=== PATIENT | female | born 2000 | race Hispanic/Latino ===

== ENCOUNTER 2022-02-21 20:59 | Emergency (ER) | payer BC ==
--- OUTSIDE RECORDS SUMMARY | 2022-02-21 21:02 | XMS REPORT | Continuity of Care Document ---
:2000 Author Organization [facility] t Address [address] [place] [address] Dr. Coppola [address] [place] [id number] Care Team Providers Name Role Phone Unavailable Unavailable Unavailable Problems This patient has no known problems. Allergies, Adverse Reactions, Alerts This patient has no known allergies or adverse reactions. Medications This patient has no known medications. Procedures This patient has no known procedures. Results This patient has no known results.
[2022-02-21] MEDS ORDERED: DIPHENHYDRAMINE 25 MG TAB/CAP ONE (22:18)
[2022-02-21] MEDS ORDERED: predniSONE 20 MG TAB ONE (22:18)
[2022-02-21] MEDS ORDERED: FAMOTIDINE 20 MG TAB ONE (22:18)
--- NOTE | 2022-02-21 22:43 | ER ---
Nurse's Notes [facility] Name: Hope Arnold Age: 21 yrs Sex: Female : 2000 Arrival Date: 02/21/2022 Time: 21:02 Bed 9 Private MD: Diagnosis: Urticaria, unspecified Presentation: 02/21 21:18 Chief complaint: Patient states: Pt reports she took AZO cranberry for urinary health kb3 last night and awoke with a generalized pruritic rash. Coronavirus screen: Vaccine status: Client denies travel out of the [place] in the last 14 days. Ebola Screen: Patient negative for fever greater than or equal to 101.5 degrees Fahrenheit, and additional compatible Ebola Virus Disease symptoms Patient denies exposure to infectious person. Patient denies travel to an Ebola-affected area in the 21 days before illness onset. Onset: The symptoms/episode began/occurred gradually. Anaphylaxis evaluation, no signs or symptoms of anaphylaxis were noted. Initial Sepsis Screen: Does the patient meet any 2 criteria? No. Patient's initial sepsis screen is negative. Does the patient have a suspected source of infection? No. Patient's initial sepsis screen is negative. Risk Assessment: Do you want to hurt yourself or someone else? Patient reports no desire to harm self or others. Onset of symptoms was February 20, 2022. 21:18 Method Of Arrival: Ambulatory kb3 21:18 Acuity: KENAN 4 kb3 Triage Assessment: 21:22 General: Appears in no apparent distress. Behavior is calm, cooperative. Pain: Denies kb3 pain. 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 - Social history:: Smoking status: Patient denies any tobacco usage or history of. - Family history:: not pertinent. Screenin:03 Abuse screen: Denies threats or abuse. Denies injuries from another. Nutritional tw5 screening: No deficits noted. Tuberculosis screening: No symptoms or risk factors identified. Fall Risk None identified. Assessment: 23:04 Respiratory: Airway is patent Respiratory effort is even, Breath sounds are clear. tw5 Vital Signs: 21:18 BP 111 / 89; Pulse 116; Resp 20; Temp 98.8; Pulse Ox 100% ; Weight 46.72 kg; Height 5 kb3 ft. 3 in. (160.02 cm); Pain 5/10; 21:18 Body Mass Index 18.25 (46.72 kg, 160.02 cm) kb3 ED Course: 21:02 Patient arrived in ED. jj6 21:22 Triage completed. kb3 21:22 Arm band placed on right wrist. kb3 21:54 Gayla Almanzar is Primary Nurse. tw5 21:57 Tyler Gutierrez MD is Attending Physician. [facility] 22:56 Urine Culture Sent. tw5 23:03 Patient has correct armband on for positive identification. tw5 23:03 No provider procedures requiring assistance completed. Urine collected: clean catch tw5 specimen. IV discontinued. Administered Medications: 22:16 Drug: predniSONE 60 mg Route: PO; tw5 22:57 Follow up: Response: No adverse reaction tw5 22:16 Drug: Pepcid (famotidine) 40 mg Route: PO; tw5 22:57 Follow up: Response: No adverse reaction tw5 22:16 Drug: Benadryl (diphenhydrAMINE) 50 mg Route: PO; tw5 22:56 Follow up: Response: No adverse reaction tw5 Medication: 23:04 VIS not applicable for this client. tw5 Outcome: 22:42 Discharge ordered by . [facility] 23:03 Discharged to home ambulatory. tw5 23:03 Condition: stable 23:03 Discharge instructions given to patient, Instructed on discharge instructions, follow up and referral plans. medication usage, Demonstrated understanding of instructions, follow-up care, medications, Prescriptions given X 3. 23:04 Patient left the ED. tw5 23:05 Patient left the ED. mw2 Signatures: Tyler Gutierrez MD MD cha Westbrook, MyKena mw2 Gayla Almanzar tw5 Irina Torres jj6 Martina Fuller, RN RN kb3
--- NOTE | 2022-02-21 22:43 | EDPHYS ---
Physician Documentation [facility] Name: Hope Arnold Age: 21 yrs Sex: Female : 2000 Arrival Date: 02/21/2022 Time: 21:02 Bed 9 Private MD: OC Physician Tyler Gutierrez HPI: 02/21 22:35 This 21 yrs old Female presents to ER via Ambulatory with complaints of Hives. sparkle 22:35 The patient's rash thought to be caused by hives, urticaria. The rash is located on the sparkle body diffusely. The rash can be described as erythematous, raised. Onset: The symptoms/episode began/occurred 1 day(s) ago. Associated signs and symptoms: Pertinent positives: burning sensation, itching, Pain swelling of lips. Severity of symptoms: At their worst the symptoms were mild in the emergency department the symptoms are unchanged. The patient presents with urinary symptoms, dysuria, frequency. Modifying factors: The symptoms are alleviated by nothing, the symptoms are aggravated by nothing. 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 - Social history:: Smoking status: Patient denies any tobacco usage or history of. - Family history:: not pertinent. ROS: 22:35 Constitutional: Negative for fever, chills, and weight loss, Eyes: Negative for injury, saprkle pain, redness, and discharge, ENT: Negative for injury, pain, and discharge, Neck: Negative for injury, pain, and swelling, Cardiovascular: Negative for chest pain, palpitations, and edema, Respiratory: Negative for shortness of breath, cough, wheezing, and pleuritic chest pain, Abdomen/GI: Negative for abdominal pain, nausea, vomiting, diarrhea, and constipation, Back: Negative for injury and pain, MS/Extremity: Negative for injury and deformity, Neuro: Negative for headache, weakness, numbness, tingling, and seizure, Psych: Negative for depression, anxiety, suicide ideation, homicidal ideation, and hallucinations, Allergy/Immunology: Negative for hives, rash, and allergies, Endocrine: Negative for neck swelling, polydipsia, polyuria, polyphagia, and marked weight changes, Hematologic/Lymphatic: Negative for swollen nodes, abnormal bleeding, and unusual bruising. 22:35 : Positive for pelvic pain, burning with urination, difficulty urinating. 22:35 Skin: Positive for diffusely, hives. Exam: 22:35 Constitutional: This is a well developed, well nourished patient who is awake, alert, sparkle and in no acute distress. Head/Face: Normocephalic, atraumatic. Eyes: Pupils equal round and reactive to light, extra-ocular motions intact. Lids and lashes normal. Conjunctiva and sclera are non-icteric and not injected. Cornea within normal limits. Periorbital areas with no swelling, redness, or edema. ENT: Nares patent. No nasal discharge, no septal abnormalities noted. Tympanic membranes are normal and external auditory canals are clear. Oropharynx with no redness, swelling, or masses, exudates, or evidence of obstruction, uvula midline. Mucous membranes moist. Neck: Trachea midline, no thyromegaly or masses palpated, and no cervical lymphadenopathy. Supple, full range of motion without nuchal rigidity, or vertebral point tenderness. No Meningismus. Chest/axilla: Normal chest wall appearance and motion. Nontender with no deformity. No lesions are appreciated. Cardiovascular: Regular rate and rhythm with a normal S1 and S2. No gallops, murmurs, or rubs. Normal PMI, no JVD. No pulse deficits. Respiratory: Lungs have equal breath sounds bilaterally, clear to auscultation and percussion. No rales, rhonchi or wheezes noted. No increased work of breathing, no retractions or nasal flaring. Abdomen/GI: Soft, non-tender, with normal bowel sounds. No distension or tympany. No guarding or rebound. No evidence of tenderness throughout. Back: No spinal tenderness. No costovertebral tenderness. Full range of motion. Female : Normal external genitalia. MS/ Extremity: Pulses equal, no cyanosis. Neurovascular intact. Full, normal range of motion. Neuro: Awake and alert, GCS 15, oriented to person, place, time, and situation. Cranial nerves II-XII grossly intact. Motor strength 5/5 in all extremities. Sensory grossly intact. Cerebellar exam normal. Normal gait. 22:35 Skin: Appearance: Color: normal in color, Temperature: normal temperature, warm, Moisture: normal moisture, petechiae, not noted, ecchymosis, not noted, flushing, not noted, swelling, is not appreciated. Vital Signs: 21:18 BP 111 / 89; Pulse 116; Resp 20; Temp 98.8; Pulse Ox 100% ; Weight 46.72 kg; Height 5 kb3 ft. 3 in. (160.02 cm); Pain 5/10; 21:18 Body Mass Index 18.25 (46.72 kg, 160.02 cm) kb3 MDM: 21:57 Patient medically screened. [facility] 22:40 Data reviewed: vital signs, nurses notes, lab test result(s). Data interpreted: Cardiac sparkle monitor: not applicable for this patient encounter. rate is 20 beats/min, rhythm is regular, Pulse oximetry: on room air is 100 %. Counseling: I had a detailed discussion with the patient and/or guardian regarding: the historical points, exam findings, and any diagnostic results supporting the discharge/admit diagnosis, lab results, radiology results, the need for outpatient follow up, for definitive care, a family practitioner. 02/21 22:34 Order name: Urine Culture [facility] 02/21 23:03 Order name: Urine Dipstick-Ancillary [facility] 02/21 23:05 Order name: Urine --Ancillary (enter results) [facility] 02/21 22:34 Order name: Urine Dipstick-Ancillary (obtain specimen); Complete Time: 22:56 [facility] 02/21 22:34 Order name: Urine Test (obtain specimen); Complete Time: 22:56 [facility] Administered Medications: 22:16 Drug: predniSONE 60 mg Route: PO; tw 22:57 Follow up: Response: No adverse reaction tw5 22:16 Drug: Pepcid (famotidine) 40 mg Route: PO; tw 22:57 Follow up: Response: No adverse reaction tw5 22:16 Drug: Benadryl (diphenhydrAMINE) 50 mg Route: PO; tw 22:56 Follow up: Response: No adverse reaction tw5 Disposition Summary: 02/21/22 22:42 Discharge Ordered Location: Home [facility] Problem: new sparkle Symptoms: have improved sparkle Condition: Stable sparkle Diagnosis - Urticaria, unspecified sparkle Followup: sparkle - With: Private Physician - When: 2 - 3 days - Reason: Recheck today's complaints, Continuance of care, Re-evaluation by your physician Discharge Instructions: - Discharge Summary Sheet sparkle - Hives sparkle - Rash, Adult sparkle - Rash, Adult, [id number] sparkle - Hives, Jxmm-[id number] sparkle Forms: - Medication Reconciliation Form [facility] - Thank You Letter [facility] - Antibiotic Education [facility] - Prescription Opioid Use [facility] Prescriptions: - Benadryl 25 mg Oral Capsule - take 1 capsule by ORAL route every 6 hours As needed; 30 tablet; Refills: 0, [facility] Product Selection Permitted - Pepcid 20 mg Oral Tablet - take 1 tablet by ORAL route every 12 hours for 10 days; 20 tablet; Refills: 0, [facility] Product Selection Permitted - Prednisone 20 mg Oral Tablet - take 2 tablets by ORAL route once daily for 5 days; 10 tablet; Refills: 0, [facility] Product Selection Permitted Signatures: Dispatcher [employer] Tyler Delarosa MD MD cha Wood, Tiffany tw5 Martina Fuller RN RN kb3
[2022-02-21 23:03] LABS: Urine Blood Trace-intact (Negative); Urine Glucose Negative (Negative); Urine Protein Negative (Negative); Urine Specific Gravity 1.015 (1.005-1.030)
[2022-02-21 23:15] LABS: Urine Specific Gravity/Preg 1.015 (1.005-1.030)
[2022-02-22 02:57] VITALS: BP 111/89; TEMP 98.8; O2SAT 100
== END 2022-02-21 23:05 | disposition home or self-care (01) ==
LOC: ER 20:59
DX: L50.9 Urticaria, unspecified (principal); R30.0 Dysuria
CPT/HCPCS: 87088; 87086; 81025; 81003; J7512; 99283

== ENCOUNTER 2022-02-22 13:08 | Emergency (ER) | payer BC ==
--- OUTSIDE RECORDS SUMMARY | 2022-02-22 13:11 | XMS REPORT | Continuity of Care Document ---
:2000 Author Organization [facility] t Address [address] [place] [address] Dr. Coppola [address] [place] [id number] Care Team Providers Name Role Phone Unavailable Unavailable Unavailable Problems This patient has no known problems. Allergies, Adverse Reactions, Alerts This patient has no known allergies or adverse reactions. Medications This patient has no known medications. Procedures This patient has no known procedures. Results This patient has no known results.
[2022-02-22] MEDS ORDERED: DIPHENHYDRAMINE 25 MG TAB/CAP ONE (14:06)
[2022-02-22] MEDS ORDERED: dexAMETHasone 10 MG/ML VIAL ONE (14:06)
[2022-02-22] MEDS ORDERED: DIPHENHYDRAMINE 50 MG/ML VIAL ONE (15:37)
--- NOTE | 2022-02-22 15:47 | ER ---
Nurse's Notes [facility] Name: Hope Arnold Age: 21 yrs Sex: Female : 2000 Arrival Date: 02/22/2022 Time: 13:11 Bed DIS1 Private MD: Lissy Real K Diagnosis: Urticaria, unspecified Presentation: 02/22 13:38 Chief complaint: Patient states: I started having hives last night and I came in and bm7 they give me a lot of medications but they are not working. Coronavirus screen: At this time, the client does not indicate any symptoms associated with coronavirus-19. Ebola Screen: No symptoms or risks identified at this time. Onset: The symptoms/episode began/occurred yesterday. Anaphylaxis evaluation, no signs or symptoms of anaphylaxis were noted. Initial Sepsis Screen: Does the patient meet any 2 criteria? No. Patient's initial sepsis screen is negative. Does the patient have a suspected source of infection? No. Patient's initial sepsis screen is negative. Risk Assessment: Do you want to hurt yourself or someone else? Patient reports no desire to harm self or others. Onset of symptoms was February 21, 2022 at 20:22. 13:38 Method Of Arrival: Ambulatory bm7 13:38 Acuity: KENAN 4 bm7 Triage Assessment: 13:40 General: Appears in no apparent distress. uncomfortable, Behavior is calm, cooperative, bm7 appropriate for age. Pain: Denies pain. EENT: No deficits noted. No signs and/or symptoms were reported regarding the EENT system. Oral mucosa is moist. Throat is clear Denies difficulty swallowing. Neuro: No deficits noted. Cardiovascular: No deficits noted. Chest pain is denied. Respiratory: No deficits noted. Airway is patent Respiratory effort is even, unlabored, Respiratory pattern is regular, symmetrical, Breath sounds are clear bilaterally. Denies cough, shortness of breath. GI: No deficits noted. No signs and/or symptoms were reported involving the gastrointestinal system. : No deficits noted. No signs and/or symptoms were reported regarding the genitourinary system. Derm: Skin is intact, is healthy with good turgor, Skin is dry, Skin is pink, warm \T\ dry. Skin temperature is warm Rash noted that is papular, red, on chest and abdomen. Musculoskeletal: No deficits noted. No signs and/or symptoms reported regarding the musculoskeletal system. 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 - Social history:: Smoking status: Patient denies any tobacco usage or history of. Screenin:00 Abuse screen: Denies threats or abuse. Denies injuries from another. Nutritional kb3 screening: No deficits noted. Tuberculosis screening: No symptoms or risk factors identified. Fall Risk None identified. Assessment: 14:00 General: Appears distressed, uncomfortable, Behavior is calm, cooperative, Receive care kb3 of pt from lobby, ambulatory to chair 3. Pt reports she was seen last night for a possible allergic reaction to cranberry AZO with hives covering her torso and bilateral arms. Pt reports she woke up this morning and the hives and itching are worse. Hives now visible on face that were not present last night. . 14:00 Respiratory: No deficits noted. Airway is patent Breath sounds are clear bilaterally. kb3 Vital Signs: 13:38 BP 113 / 76; Pulse 82; Resp 18; Temp 97.2(TE); Pulse Ox 100% on R/A; Weight 46.72 kg 7 (R); Height 5 ft. 3 in. (160.02 cm); Pain 0/10; 16:00 BP 108 / 72; Pulse 75; Resp 18; Pulse Ox 100% ; kb3 13:38 Body Mass Index 18.25 (46.72 kg, 160.02 cm) bm7 ED Course: 13:11 Patient arrived in ED. am2 13:12 Lissy Real MD is Private Physician. am2 13:17 Patient no SOB, mouth swelling , or obvious distress noted. ll1 13:40 Triage completed. bm7 13:40 Arm band placed on right wrist. bm7 13:42 Alessandro Lynn NP is PHCP. pm1 13:42 Bishop Rocha MD is Attending Physician. pm1 14:00 Patient has correct armband on for positive identification. kb3 14:00 Warm blanket given. kb3 14:00 No provider procedures requiring assistance completed. kb3 16:00 Patient did not have IV access during this emergency room visit. kb3 16:21 Martina Fuller, RN is Primary Nurse. kb3 Administered Medications: 14:01 Drug: Decadron (dexamethasone) 10 mg Route: IM; Site: left deltoid; kb3 15:00 Follow up: Response: No adverse reaction kb3 14:01 Drug: Benadryl (diphenhydrAMINE) 25 mg Route: PO; kb3 15:00 Follow up: Response: No adverse reaction kb3 15:36 Drug: Benadryl (diphenhydrAMINE) 25 mg Route: IM; Site: right deltoid; kr3 16:00 Follow up: Response: No adverse reaction kb3 Medication: 14:00 VIS not applicable for this client. kb3 Outcome: 15:46 Discharge ordered by MD. pm1 16:00 Discharged to home ambulatory. kb3 16:00 Condition: stable 16:00 Discharge instructions given to patient, Instructed on discharge instructions, follow up and referral plans. medication usage, Demonstrated understanding of instructions, follow-up care, medications, Prescriptions given X 1. 16:27 Patient left the ED. kb3 Signatures: Alessandro Lynn, AFTAB COMPUTER TERMINAL OPERATOR pm1 Melly Esquivel am2 Carlos A Leonardo, TESSA RN ll1 Belle Barajas, TESSA RN bm7 Neeru Moncada RN RN kr3 Martina Fuller, RN RN kb3
--- NOTE | 2022-02-22 15:47 | EDPHYS ---
Physician Documentation [facility] Name: Hope Arnold Age: 21 yrs Sex: Female : 2000 Arrival Date: 02/22/2022 Time: 13:11 Bed DIS1 Private MD: Lissy Real K ED Physician Bishop Rocha HPI: 02/22 13:53 This 21 yrs old Female presents to ER via Ambulatory with complaints of pm1 Allergic Reaction, Hives - worsening. 13:53 The patient presents with rash, that is diffuse. Onset: The symptoms/episode pm1 began/occurred 2 day(s) ago. Associated signs and symptoms: Pertinent negatives: dysphagia, shortness of breath. Possible causes: azoo, possibly bactrim. At home the patient or guardian has treated the symptoms with nothing. Severity of symptoms: in the emergency department the symptoms are worse. The patient has been recently seen at the [facility] Emergency Department, yesterday, for similar complaints Discharged home with prednisone 40 mg, Benadryl 25 mg and Pepcid 20 mg. Patient presented to ER with complaints of worsening pubic area rash. Patient without any shortness of breath, lip swelling or tongue swelling. 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 - Social history:: Smoking status: Patient denies any tobacco usage or history of. ROS: 13:53 Constitutional: Negative for fever, chills, and weight loss. pm1 13:53 Cardiovascular: Negative for chest pain, palpitations, and edema, Respiratory: Negative for shortness of breath, cough, wheezing, and pleuritic chest pain, Abdomen/GI: Negative for abdominal pain, nausea, vomiting, diarrhea, and constipation, MS/Extremity: Negative for injury and deformity. 13:53 Neuro: Negative for headache, weakness, numbness, tingling, and seizure. 13:53 Skin: Positive for rash, diffusely. 13:53 All other systems are negative. Exam: 13:53 Constitutional: This is a well developed, well nourished patient who is awake, alert, pm1 and in no acute distress. Head/Face: Normocephalic, atraumatic. 13:53 ENT: Exam is negative for acute changes, Mouth: Lips: normal, moist, Oral mucosa: normal, pink and intact, moist, Tongue: is normal. 13:53 Cardiovascular: Exam negative for acute changes, Rate: normal, Rhythm: regular, Pulses: no pulse deficits are appreciated. 13:53 Respiratory: Exam negative for acute changes, respiratory distress, shortness of breath. 13:53 Skin: Appearance: normal except for affected area, consistent with urticaria, and is diffusely located. 13:53 Neuro: Exam negative for acute changes, Orientation: is normal, Mentation: is normal, Motor: is normal, moves all fours. Vital Signs: 13:38 BP 113 / 76; Pulse 82; Resp 18; Temp 97.2(TE); Pulse Ox 100% on R/A; Weight 46.72 kg bm7 (R); Height 5 ft. 3 in. (160.02 cm); Pain 0/10; 16:00 BP 108 / 72; Pulse 75; Resp 18; Pulse Ox 100% ; kb3 13:38 Body Mass Index 18.25 (46.72 kg, 160.02 cm) bm7 MDM: 13:53 Patient medically screened. pm1 15:45 Data reviewed: vital signs. Data interpreted: Pulse oximetry: on room air is 100 %. pm1 Interpretation: normal. Counseling: I had a detailed discussion with the patient and/or guardian regarding: the historical points, exam findings, and any diagnostic results supporting the discharge/admit diagnosis, the need for outpatient follow up, an allergy/regulatory submissions specialist, a family practitioner, to return to the emergency department if symptoms worsen or persist or if there are any questions or concerns that arise at home. Administered Medications: 14:01 Drug: Decadron (dexamethasone) 10 mg Route: IM; Site: left deltoid; kb3 15:00 Follow up: Response: No adverse reaction kb3 14:01 Drug: Benadryl (diphenhydrAMINE) 25 mg Route: PO; kb3 15:00 Follow up: Response: No adverse reaction kb3 15:36 Drug: Benadryl (diphenhydrAMINE) 25 mg Route: IM; Site: right deltoid; kr3 16:00 Follow up: Response: No adverse reaction kb3 Disposition: 18:47 Co-signature as Attending Physician, Bishop Rocha MD. rn Disposition Summary: 02/22/22 15:46 Discharge Ordered Location: Home pm1 Problem: new pm1 Symptoms: have improved pm1 Condition: Stable pm1 Diagnosis - Urticaria, unspecified pm1 Followup: pm1 - With: Emergency Department - When: As needed - Reason: Worsening of condition Followup: pm1 - With: Private Physician - When: 2 - 3 days - Reason: Recheck today's complaints, Continuance of care, Re-evaluation by your physician Discharge Instructions: - Discharge Summary Sheet pm1 - Hives pm1 Forms: - Medication Reconciliation Form pm1 - Thank You Letter pm1 - Antibiotic Education pm1 - Prescription Opioid Use pm1 Prescriptions: - Prednisone 20 mg Oral Tablet - take 3 tablets by ORAL route once daily for 5 days; 15 tablet; Refills: 0, pm1 Product Selection Permitted Signatures: Bishop Rocha MD MD rn Marinas, Patrick, NP ROLL EDGE MACHINE OPERATOR pm1 Belle Barajas, RN RN bm7 Neeru Moncada RN RN kr3 Martina Fuller RN RN kb3
[2022-02-22 16:34] VITALS: TEMP 97.2; O2SAT 100
[2022-02-22 16:37] VITALS: BP 108/72
== END 2022-02-22 16:27 | disposition home or self-care (01) ==
LOC: ER 13:08
DX: L50.9 Urticaria, unspecified (principal)
CPT/HCPCS: J1200; J1100; 96372; 99283